=== PATIENT | female | born 1980 | race Caucasian/White ===

== ENCOUNTER 2018-05-03 08:59 | Emergency (ER) | payer OTHER ==
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
[2018-05-03 11:14] VITALS: BP 130/84
== END 2018-05-03 11:14 | disposition home or self-care (01) ==
DX: S00.83XA Contusion of other part of head, initial encounter (principal); V49.59XA Passenger injured in collision with other motor vehicles in traffic accident, initial encounter; Y92.9 Unspecified place or not applicable; Y93.9 Activity, unspecified; Y99.9 Unspecified external cause status; Z79.01 Long term (current) use of anticoagulants